=== PATIENT | female | born 1985 | race Caucasian/White ===

== ENCOUNTER 2024-09-05 00:45 | Day surgery (SDC) | payer OTHER, SELFPAY ==
[2024-08-31 09:31] VITALS: BMI 26.6
--- NOTE | 2024-08-31 09:39 | PC.NURSE ---
Report to the Outpatient Waiting Room, entrance under the green pavilion located off [facility], at time _0830_ on date _[id number]_. Planned Procedure Time: _1030_.? Time changes happen often and if your time is changed the preop area will call you the afternoon before. - You and your visitor will be asked to self-screen and do not enter if you have any COVID symptoms. Please call surgeon if you need to reschedule. - A mask is optional within the hospital at this time. Patients may have clear liquids (water, carbonated beverages, clear teas, apple juice) until 3 hours prior to surgery with a maximum of 20 ounces. - No food from midnight until time of surgery and no smoking, or chewing tobacco (or any form of nicotine). No chewing gum, candy or mints. Take only the following medications with a SIP of water on the morning of surgery: __Levothyroxine___ DO NOT STOP ANY OF YOUR OTHER PRESCRIPTION MEDICATIONS PRIOR TO SURGERY EXCEPT THE FOLLOWING Hold all vitamins and supplements for 3 days per anesthesiologist. Medications to discontinue per physician Date to take last dose Please no make-up, nail irish, hairspray, perfume, deodorant, or body powder the day of surgery.? No jewelry (including any body piercings) or valuables the day of surgery, leave them at home.? Please take a shower or bath the night before, or the morning of, surgery with an antibacterial soap.? Wear comfortable, loose fitting clothing. - Jewelry must be removed prior to entering the operating room.? Rings and piercings that are not removed may be cut off. - The hospital will not accept responsibility for valuables.? - Please leave all valuables, including medications, at home the day of surgery. If you are going home after surgery, a licensed driver education instructor must drive you home.? - NO public transportation without another adult if you receive anesthesia. - We recommend that an adult stay with you for 24 hours following discharge. - We also recommend that you do not drive, make important decision, drink alcoholic beverages, or take any drugs that were not prescribed by your health care provider for at least 24 hours after your discharge time. Follow any additional instructions given to you from your surgeon. Telephone instructions given to __Junijak___and asked if any additional questions and then verbalized understanding. Patient advised to call surgeon office or pre surgery nurse liaison [phone] if any additional questions.
[2024-09-05] VITALS (8 sets, daily range): BP systolic 110–133; BP diastolic 60–86; PULSE 74–92; RESP 12–16; TEMP 36.8–37; O2SAT 96–100
--- OUTSIDE RECORDS SUMMARY | 2024-09-05 00:48 | XMS_ITS | Clinical Summary ---
Author Organization [facility] Medical Office Building B Address [address] [place] [address] Care Team Providers Care Wharf Helper Name Role Phone Mars Hernandez MD Primary Care Provider [phone] Allergies Active Allergy Reactions Criticality Noted Date Comments Doxycycline Other (See comments) Reaction: yeast infection, Medications Mounjaro 5 mg/0.5 mL pen injector INJECT 5 MG SUBCUTANEOUSLY ONCE WEEKLY 2 Active Mounjaro 7.5 mg/0.5 mL pen injector Inject 7.5 mg under the skin once a week 2 mL 3 3 Active CAMPAIGN DEVELOPER Thyroid 15 mg tablet 3 Active etonogestreL-e thinyl estradioL (NUVARING, ELURYNG) 0.12-0.015 mg/24 hr vaginal ring INSERT ONE RING VAGINALLY FOR THREE WEEKS, THEN REMOVE FOR ONE WEEK 1 each 12 4 Active Active Problems Problem Noted Date Diagnosed Date History of COVID-19 04/17/2021 Overview (04/17/2021): Late fall. Atopic rhinitis 08/19/2013 Overview (07/09/2016): ALLERGIC RHINITIS NOS History of gestational hypertension 04/08/2012 Overview (07/08/2016): Gestational hypertension Immunizations Immunization Administration Dates Next Due Influenza, Trivalent, IM (MDV) 01/25/2013 Influenza, Unspecified 01/17/2017 Surgical History Surgery Date Site/Laterality Comments SECTION x3 Medical History Medical History Date Comments Varicella Gestational hypertension 05/2010 Family History Medical History Relation Name Comments Diabetes Maternal Grandmother Radha Diabetes Paternal Grandmother Tiera Relation Name Status Comments Maternal Grandmother Radha Paternal Grandmother Tiera Social History Tobacco Use Types Packs/Day Years Used Date Smoking Tobacco: Never Smokeless Tobacco: Never Tobacco Cessation:Counseling Given: Not Answered Alcohol Use Standard Drinks/Week Comments Yes 0 (1 standard drink = 0.6 oz pur e alcohol) socially PHQ-2 Answer Date Recorded PHQ-2 Total Score (If total score is 3 or more points, staff should administer the PHQ-9) 0 10/04/2023 Comments No Sex and Gender Information Value Date Recorded Sex Assigned at Not on file Legal 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 Gender Identity Not on file Sexual Orientation Not on file Occupation Industry Job Start Date Job End Date teacher Not on file Not on file Not on file Obstetrics History Para Term AB IAB SAB Ectopic Multiple Livin g Live Births 3 3 3 3 Date Outcome GA Total Labor Labor//3rd Weight Sex Type Anes PTL Kirti A1 A5 Name Clin 2010 Para 3.487 kg (7 lb 11 oz) CS-Un spec Living Complications:None 2011 Para 3.515 kg (7 lb 12 oz) CS-Un spec Living Complications:None 2015 Para 3.997 kg (8 lb 13 oz) CS-Un spec Living Complications:None Last Filed Vital Signs Vital Sign Reading Time Taken Comments Blood Pressure 118/78 10/04/2023 11:15 AM CDT Pulse 102 04/16/2022 8:39 AM DYE HOUSE WHEEL OPERATOR Temperature - - Respiratory Rate 16 04/16/2022 8:39 AM DYE HOUSE WHEEL OPERATOR Oxygen Saturation 99% 04/16/2022 8:39 AM DYE HOUSE WHEEL OPERATOR Inhaled Oxygen Concentration - - Weight 71.2 kg (157 lb) 10/04/2023 11:15 AM CDT Height 165.1 cm (5' 5) 10/04/2023 11:15 AM CDT Body Mass Index 26.13 10/04/2023 11:15 AM CDT Plan of Treatment Health Maintenance Due Date Last Done Comments DTaP/Tdap/Td Vaccine (1 - Tdap) 1996 Hepatitis B Screening 07/29/2003 Cervical Cancer Screening 09/09/20232022, 04/14/2021, 04/08/2020, Additional history exists Covid-19 Vaccine ( season) 2023 06/04/2020, 05/08/2020 Depression Screening 10/03/2024 10/04/2023, 09/08/2022, 04/16/2022, Additional history exists Regular Well Visit/Exam 18-64 10/03/2024 10/04/2023, 09/08/2022, 04/14/2021, Additional history exists Influenza Vaccine (Season Ended) 2024 01/17/2017, 01/25/2013 Hepatitis C Screening Completed 11/15/2014 HPV Vaccines Aged Out No longer eligi ble based on patient's age to complete this topic Pneumococcal vaccine <65 Aged Out No longer eligible based on patient's age to complete this topic Procedures Procedure Name Priority Date/Time Associated Diagnosis Comments PAP WITH REFLEX TO HIGH RISK HPV Routine 09/08/2022 2:12 PM CDT Well woman exam SERUM HEPATITIS C AB Routine 11/15/2014 6:42 AM CDT from Last 3 Months or Most Recently Relevant to Health Maintenance Results * Pap with reflex to High Risk HPV (09/08/2022 2:12 PM CDT) CLINICAL INFORMATION: Adrianna Stauffer Comment:None given LMP Adrianna Stauffer Comment:08-26-22 Previous Pap Adrianna Stauffer Comment:None given Prev. Bx Adrianna Stauffer Comment:None given SOURCE: Adrianna Stauffer Comment:Cervix, Endocervix Pap, specimen adequacy Adrianna Stauffer Comment: Satisfactory for evaluation. Endocervical/transformation zone component present. HPV interp Adrianna Stauffer Comment:Negative for intraep ithelial lesion or malignancy. COMMENTS Adrianna Stauffer Comment: This Pap test has been evaluated with computer assisted technology. Ui Lead Developer Jin Hawkins Comment: MEF, CT(ASCP) CT screening location: [place] [address] [place], [place] [address] Comment Adrianna Stauffer Comment: EXPLANATORY NOTE: The Pap is a screening test for cervical cancer. It is not a diagnostic test and is subject to false negative and false positive results. It is most reliable when a satisfactory sample, regularly obtained, is submitted with relevant clinical findings and history, and when the Pap result is evaluated along with historic and current clinical information. Thin prep 09/08/2022 2:12 PM CDT 09/09/2022 3:29 AM CDT Too Mckenna MD LAB CYTOLOGY ORDERABLES Fi nal Result [facility] [address] [place] [address] * Serum Hepatitis C ab (11/15/2014 6:42 AM CDT) HCV ab NON-REACTI VE NON-REACTI VE HISTORICAL RESULTS Hepatitis signal to cutoff ratio 0.03 <1.00 HISTORICAL RESULTS Serum 11/15/2014 6:42 AM CDT Narrative HISTORICAL RESULTS - 11/16/2014 10:00 AM CDT Test performed at [email or web address] [address] [place] [address] Director: HOLLEY COOLEY DO,MPH Historical Provider LAB BLOOD ORDERABLES Nichole l Result HISTORICAL RESULTS from Last 3 Months or Most Recently Relevant to Health Maintenance Insurance [facility] PL[facility] Care Teams Wharf Helper Relationship Specialty Start Date End Date Mars Hernandez MD [address] [place] [address] PCP - General Family Medicine 04/16/22
--- OUTSIDE RECORDS SUMMARY | 2024-09-05 00:48 | XMS_ITS | Referral Summary ---
Author Organization [facility] Medical Office Building B Address [address] [place] [address] Care Team Providers Care Motor Tester Name Role Phone Mars Hernandez MD Primary Care Provider [phone] Allergies Active Allergy Reactions Criticality Noted Date Comments Doxycycline Other (See comments) Reaction: yeast infection, Medications Mounjaro 5 mg/0.5 mL pen injector INJECT 5 MG SUBCUTANEOUSLY ONCE WEEKLY 2 Active Mounjaro 7.5 mg/0.5 mL pen injector Inject 7.5 mg under the skin once a week 2 mL 3 3 Active NEWSPAPER SUBSCRIPTION SOLICITOR Thyroid 15 mg tablet 3 Active etonogestreL-e [...] Trivalent, IM (MDV) 01/25/2013 Influenza, Unspecified 01/17/2017 Social History Tobacco Use Types Packs/Day Years [...] on file Legal 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 Gender Identity Not on file Sexual Orientation Not on file Occupation Industry Job Start Date Job End Date teacher Not on file Not on file Not on file Last Filed Vital Signs Vital Sign Reading Time Taken Comments Blood Pressure 118/78 10/04/2023 11:15 AM CDT Pulse 102 04/16/2022 8:39 AM TEAM LEADER Temperature - - Respiratory Rate 16 04/16/2022 8:39 AM TEAM LEADER Oxygen Saturation 99% 04/16/2022 8:39 AM TEAM LEADER Inhaled Oxygen Concentration - - Weight 71.2 kg (157 lb) 10/04/2023 11:15 AM CDT Height 165.1 cm (5' 5) 10/04/2023 11:15 AM CDT Body Mass Index 26.13 10/04/2023 11:15 AM CDT Plan of Treatment Not on file Procedures Procedure Name Priority Date/Time Associated Diagnosis [...] Endocervical/transformation zone component present. HPV interp Adrianna barroso Eh Comment:Negative for intraep ithelial lesion or malignancy. COMMENTS [facility] ZenpriseMadhavSandrine chio Stauffer Comment: This Pap test has been evaluated with computer assisted technology. Steam Meter Reader Jin ZenpriseAddis Stauffer Comment: MEF, CT(ASCP) CT screening location: [place] [address] [address] Comment [facility] ShreyaAddis Stauffer Comment: EXPLANATORY NOTE: The Pap is [...] MD LAB CYTOLOGY ORDERABLES Fi nal Result Performing Organization Address [facility] Co de Phone Number [place] [address] [place] [address] * Serum Hepatitis C ab (11/15/2014 6:42 AM CDT) HCV ab NON-REACTI VE NON-REACTI VE HISTORICAL RESULTS Hepatitis signal to cutoff ratio 0.03 <1.00 HISTORICAL RESULTS Serum 11/15/2014 6:42 AM CDT Narrative HISTORICAL RESULTS - 11/16/2014 10:00 AM CDT Test performed at [facility] [place] [address] [place] [address] Director: HOLLEY COOLEY DO,MPH Historical Provider LAB BLOOD ORDERABLES Nichole olivares Result Performing Organization Address City/[facility]/ZIP Co de Phone Number HISTORICAL RESULTS from Last 3 Months or Most Recently Relevant to Health Maintenance Insurance [facility] CHO[facility] PLUS Care Teams Motor Tester Relationship Specialty Start Date End Date Mars Hernandez MD [address] [place] [address] PCP - General Family Medicine 04/16/22
[2024-09-05] MEDS: TRANEXAMIC ACID 1,000MG/ISO100 1,000 MG/100 ML BAG 200 MG IVPB (09:30)
[2024-09-05] MEDS: LACTATED RINGERS 1,000 ML 30 ML IV CONT ×2 (09:30→14:50)
--- NOTE | 2024-09-05 10:00 | P.PNAN_ITS ---
Anes - Initial Pre Proc Eval Procedure: Operation Date: 09/05/24 10:30 Proposed Procedures p Abdominoplasty with Liposuction - Danny Ellis MD Date/Time: 09/05/24 10:00 Surgeon: Danny Ellis MD Pre Op Diagnosis: Skin Laxity Patient Data Age: 39 Gender: F Height: 1.68 m Weight: 75 kg Allergies Allergy/AdvReac Type Severity Reaction Status Date / Time No Known Allergies Allergy Verified 08/31/24 09:29 Home Medications ?Medication ?Instructions ?Recorded ?Confirmed ?Type etonogestrel 0.12 mg-ethinyl 1 vag ring vaginal MONTHLY 08/31/24 08/31/24 History estradiol 0.015 mg/24 hr vaginal ring (EnilloRing) levothyroxine 50 mcg tablet 50 mcg PO DAILY 08/31/24 08/31/24 History Laboratory Tests 09/05/24 08:58 Cotinine Pending Patient hx anesthesia problems: none Family hx anesthesia problems: none Results Review: All pre-operative results and documents have been reviewed as part of the pre-operative evaluation. [facility] Past Medical History Medical History (Updated 09/05/24 @ 10:00 by Jeremiah Meyer DO) Hypothyroidism Social History Social History Smoking status: Never smoker Alcohol intake: current Living arrangements: with family Spiritual care concerns: No Anes - Eval Final PreProcedure Day of Procedure 09/05/24 10:00 Patient weight: overweight Heart: regular rate and rhythm Lungs: clear to auscultation Airway: Mallampati scale class II Neurological: alert and oriented Last oral intake: >/= 8 hours ASA classification: II Emergent: no Anesthetic plan: proceed Anesthesia type and monitoring: general LMA and standard monitoring Results Review: All pre-operative results and documents have been reviewed as part of the pre-op erative evaluation. Informed Consent: The patient's anesthetic plan and its attendant risks and benefits were discussed with the patient/family/POA. Questions were solicited and answers provided to the satisfaction of the patient/family/POA.
--- NOTE | 2024-09-05 10:10 | WPDHPUPDATE1 ---
History and Physical Update Update Date/Time: 09/05/24 10:10 History and Physical has been reviewed, including an updated exam of the patient. There are NO changes in the patient's condition. Risks, benefits, and alternatives have been discussed and questions answered. Patient agrees to proceed with procedure.
--- NOTE | 2024-09-05 10:15 | P.OP_ITS ---
Procedure Note - Detailed Date of Procedure 09/05/24 Pre-op Diagnosis Skin Laxity Post-op Diagnosis Same Procedure Performed Progressive tension abdominoplasty with suction lipectomy Surgeon Danny Ellis MD Anesthesia General Findings Tissue removed: 1,281 grams Lipoaspirate: 3,000 cc Diastatis 5cm Description of Procedure They are here today for the above procedures. Previously and again today the risks, benefits, alternatives were discussed in extensive detail. I wanted them to be very realistic about the risks involved as well as expectations. We discussed aftercare and what to monitor for. I was very upfront about the risks of wound breakdown leading to loss of skin, open wounds, and need for additional procedures with permanent abdominal deformity. We discussed DVT/PE risks and management. Made sure answered all of their questions to their satisfaction today and consent was obtained. They were marked in the preoperative holding area with their verification. The patient was taken to the operating room. [facility]. A Barnes catheter was started. Placed prone on the operating room table with care taken to protect from injury. Prepped and draped in a standard sterile fashion. A surgical time-out was taken. Stab incisions were made and tumescent solution was infiltrated. Once adequate time was allowed for hemostasis a 5mm basket and 4mm joi cannula were utilized to complete suction lipectomy based on S.A.F.E. technique in multiple planes and passes. Suction lipectomy continued to result based on pre-operative planning, intra-operative observation, and rolling pinch test which were in full agreement. Patient was then placed supine with care taken to protect from injury. I placed the patient in a flexed position to verify the upper and lower markings would reach. I then placed supine. A thorough abdominal examination was completed. Stab incisions were made and tumescent solution infiltrated. Stab incisions were made and tumescent solution was infiltrated. Once adequate time was allowed for hemostasis a 5mm basket and 4mm joi cannula were utilized to complete suction lipectomy based on S.A.F.E. technique in multiple planes and passes. Suction lipectomy continued to result based on pre-operative planning, intra-operative observation, and rolling pinch test which were in full agreement. A 10 blade was used to make the upper incision. I continued dissection down to the level of fascia. Elevated just what was necessary for repair of the diastasis. I then again flexed the bed to verify the upper skin flap would reach the lower markings without tension. Once verified I placed her supine once again and a 10 blade used to make the lower incision. I elevated up to level the umbilicus and left the umbilicus intact on a well-vascularized stalk. The intervening tissue was removed. A 2 mm blunt cannula with 0.5% bupivacaine was injected deep to the fascia bilaterally. I plicated the diastasis recti using 0 PDO Stratafix barbed suture. This was in 2 separate layers using 2 separate sutures as well. After the patient was flexed (below) plicated the fascia with 0 PDO Stratafix in two separate layers. This was supraumbilical and infraumbilical. The patient was flexed and starting from superior to inferior began plication using 2-0 Vicryl to obliterate all space in a standard progressive tension fashion. At the umbilicus I marked out the location of the skin and inset this with 3-0 Monocryl and 4-0 Vicryl. I continued the remainder of the plication using 2-0 Vicryl until I reached my lower planned scar line. I trimmed any e xcess skin of the upper flap making sure this was a tension-free closure. 15 Landen drain was placed. I then approximated using a 3 point suture with 2-0 Vicryl followed by 2-0 PDO Stratafix, 3-0 Stratafix ,running subcuticular 4-0 Monocryl, and tissue glue. Fluffs and an abdominal binder were placed. The patient was transferred to the bed in a flexed position. [place] and taken to the PACU without difficulty. All instrument and sponge counts were correct at the end of the case. Estimated Blood Loss 75 Drains Yes (15 Landen) Packing No Pathology None sent Complications No immediate complications Condition Stable Disposition PACU
--- NOTE | 2024-09-05 10:19 | P.PNAN_ITS ---
Anes - Eval Pre Procedure Procedure: Operation Date: 09/05/24 10:30 Proposed Procedures p Abdominoplasty with Liposuction - Danny Ellis MD Date/Time: 09/05/24 10:19 Pre Op Diagnosis: Skin Laxity Patient Data Age: 39 Gender: F Height: 1.68 m Weight: 75 kg Allergies Allergy/AdvReac Type Severity Reaction Status Date / Time No Known Allergies Allergy Verified 08/31/24 09:29 Home Medications ?Medication ?Instructions ?Recorded ?Confirmed ?Type etonogestrel 0.12 mg-ethinyl 1 vag ring vaginal MONTHLY 08/31/24 08/31/24 History estradiol 0.015 mg/24 hr vaginal ring (EnilloRing) levothyroxine 50 mcg tablet 50 mcg PO DAILY 08/31/24 08/31/24 History Laboratory Tests 09/05/24 08:58 Cotinine Pending HCG: negative Patient hx anesthesia problems: none Family hx anesthesia problems: none Results Review: All pre-operative results and documents have been reviewed as part of the pre- operative evaluation. PMFSH Past Medical History Medical History Hypothyroidism Social History Social History Smoking status: Never smoker Alcohol intake: current Living arrangements: with family Spiritual care concerns: No Exam Day of Procedure 09/05/24 10:19 Patient weight: normal Heart: regular rate and rhythm Lungs: normal air movement Airway: Mallampati scale class II Neurological: alert and oriented
[2024-09-05] MEDS: ceFAZolin 2 GM/D5W 50 ML 2 GM/50 ML BAG IVPB (10:27)
[2024-09-05 10:28] LABS: Urine Cotinine NEGATIVE
[2024-09-05 10:42] LABS: BEDSIDEPREGUCG Negative (Negative)
[2024-09-05] MEDS: LACTATED RINGERS IRRIG 1,000 ML, LIDOCAINE 1% LOCAL INJ 50 ML, EPINEPHrine HCL INJ 1 MG... INFILTRATE (10:56)
[2024-09-05] MEDS: BUPIVACAINE/EPINEPHRINE 0.5% 50 ML VIAL 60 ML INFILTRATE (10:57)
[2024-09-05] MEDS: ceFAZolin SODIUM 1 GM VIAL IV PUSH (14:28)
[2024-09-05] MEDS: fentaNYL CITRATE INJ (*CRX) 100 MCG/2 ML VIAL 25 MCG IV PUSH ×4 (15:38→15:48)
[2024-09-05] MEDS: oxyCODONE HCL (*CRX) 5 MG TAB IR PO (16:15)
== END 2024-09-05 16:47 | disposition home or self-care (01) ==
PROVIDERS: Anesthesiology; PCP Family Medicine; Visit Provider Surgery Plastic and Reconstructive Surgery
PROC: (CPT 15830; principal; 2024-09-05 10:30)
DX: Z41.1 Encounter for cosmetic surgery (principal); L57.4 Cutis laxa senilis
CPT/HCPCS: 15830; 15847; 15877; 80307; A9270; J0171; J0690; J1171; J1200; J2003; J2250; J2405; J2704; J3010; J7120